=== PATIENT | female | born 1990 | race Caucasian/White ===

== ENCOUNTER 2024-08-07 08:58 | Outpatient (CLI) | payer BC, SELFPAY | END 2024-08-07 08:59 | disposition home or self-care (01) | LOC: NFLDREF 08-18 13:48 | PROVIDERS: Visit Provider Advanced Practice Midwife | DX: Z34.93 Encounter for supervision of normal pregnancy, unspecified, third trimester (principal); Z3A.29 29 weeks gestation of pregnancy | CPT/HCPCS: 86592 ==

== ENCOUNTER 2024-09-11 09:00 | Outpatient (CLI) | payer BC, SELFPAY | END 2024-09-11 09:01 | disposition home or self-care (01) | PROVIDERS: Visit Provider Advanced Practice Midwife | DX: Z34.93 Encounter for supervision of normal pregnancy, unspecified, third trimester (principal); Z3A.34 34 weeks gestation of pregnancy | CPT/HCPCS: 82565; 82570; 84156; 84450; 84460; 87086 ==

== ENCOUNTER 2024-09-16 09:22 | Outpatient (CLI) | payer BC, SELFPAY | END 2024-09-16 09:23 | disposition home or self-care (01) | LOC: NFLDREF 09-20 02:48 | PROVIDERS: Visit Provider Advanced Practice Midwife | DX: R03.0 Elevated blood-pressure reading, without diagnosis of hypertension (principal) | CPT/HCPCS: 82570; 84156 ==

== ENCOUNTER 2024-09-25 09:15 | Outpatient (CLI) | payer BC, SELFPAY | END 2024-09-25 09:16 | disposition home or self-care (01) | LOC: NFLDREF 09-26 14:41 | PROVIDERS: Visit Provider Advanced Practice Midwife | DX: Z34.93 Encounter for supervision of normal pregnancy, unspecified, third trimester (principal); Z3A.36 36 weeks gestation of pregnancy | CPT/HCPCS: 87081; 87653 ==

== ENCOUNTER 2024-10-17 23:03 | Inpatient (IN) | payer BC, SELFPAY ==
[2024-10-17 22:51] VITALS: BP 162/99; PULSE 121; PULSE 30; RESP 22; TEMP 36.4; O2SAT 84
[2024-10-17 22:52] VITALS: PULSE 121; O2SAT 100
[2024-10-17 22:53] VITALS: BP 154/95; PULSE 115
[2024-10-17 23:09] VITALS: BP 140/97; PULSE 136
--- NOTE | 2024-10-17 23:14 | P.LDBA_ITS ---
Subjective History of Present Illness Date Seen: 10/17/24 Narrative: Margaux is being admitted to Labor and Delivery for spontaneous labor which she reports started around 1600 today. She is a 34 year old at 39.1 weeks gestation. Her full history and physical was dictated by Clare Lovell CNM on 09/30/24. Please see this for details. On admission her blood pressure has been elevated with one reading of 162/99, recheck elevated also 140/97. Discussed elevated is concerning for preeclampsia so will plan to watch closely, draw labs and recommended saline lock in the event she needs treatment for her blood pressures. Pt is agreeable to this plan. She has had one elevated blood pres sure in clinic so at this time meets criteria for gestational hypertension. 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 Per her report dx on only one elevated BP in triage. GHTN dx per rec ords. Encouraged her to consider ASA 2/13: Elevated BP in clinic, normal on recheck. Labs collected: WNL except P/c ratio 0.92. Recommend 24 hour urine collection Sent labs from home, WNL Protienuria without diagnosis, 24 hour urine with p/c ratio of 0.52 # Hx anxiety, not on meds. # Hx 3A laceration. OB Labs:??? Blood type: A+, antibody screen negative.??? Hgb: 11.6??? Platelets: 176??? Rubella: Immune??? Varicella: Immune? RPR: non-reactive??? HBsAg: non-reactive??? Hep C: negative? HIV: negative??? UC: [negative]? GC/Chlamydia: negative/negative??? Pap (11/07/21): NIL, HPV-??? Genetic screening: none? IMAGING:??? 1st trimester: 02/29/24- 6w1d by US 8w0d by LMP, FHR 112; 03/22/24-9w 1d by last US, 9w4d?by US today, kept SUSIE of 10/23/24, FHR 167 ?? Anatomy scan: Single IUP, normal anatomic survey, EFW 30%?? COVID: initial series, declined booster Flu: declined TDAP: declined OB - Problem Based A/P Additional Plan (1) 39 weeks gestation of : Status: Acute (2) Pain during labor: Status: Acute (3) Gestational hypertension: Status: Acute Plan Assessment:?? at 39.1 weeks gestation?? GBS negative? Patient is coping well with challenges of labor.?? Labor type: Spontaneous, Active labor? Category 1 FHR pattern.? complicated by: Proteinuria without diagnosis of hypertension Hx 3A laceration Labor complicated by: Gestational hypertension Plan:?? * ?Admit to L & D? * IV access: saline lock * Monitoring per policy: continuous ? * Candidate for analgesia of choice.? Planning unmedicated for pain management * Desires waterbirth.? Consent signed and Hep C negative, discussed she may risk out if blood pressures require treatment * Expectant management at this time * Monitor blood pressures. Preeclampsia labs now. ? * Patient encouraged to reposition and ambulate to promote physiologic labor and . * Anticipate ? Delivery/Labor/Induction Plan Plan: expectant management OB Exam Physical Exam Vital signs: Pulse BP Pulse Ox 136 H 140/97 H 100 10/17/24 23:09 10/17/24 23:09 10/17/24 22:52 Narrative: Vitals Reviewed Constitutional:? Alert and oriented x3 HEENT:? Normocephalic, atraumatic Neck:? Supple Lungs:? Clear to auscultation bilaterally Heart:? Regular rate and rhythm, no murmur, rub or gallop Abdomen:? Soft, nontender, and gravid. Vertex, confirmed with cervical exam per RN Extremities:? No edema or erythema Cervix: 8/90/-1 NST: 150 bpm/moderate variability/+accelerations/-decelerations/ strong contractions Detailed Labor and Delivery Exam Patient Gravid: Yes
[2024-10-17 23:40] VITALS: BP 140/99
[2024-10-17 23:42] VITALS: BP 140/99
[2024-10-17 23:58] LABS: Hematocrit 36.4 % (33.0-51.0); Hemoglobin* 11.9 gm/dL (12.0-16.0); Mean Corpuscular HGB Conc 33 gm/dL (32-36); Mean Corpuscular Hemoglobin 29 pg (26-34); Mean Corpuscular Volume 88 fL (80-100); Platelet Count* 246 K/uL (140-440); Red Blood Count 4.15 m/uL (4.00-5.20); White Blood Count* 15.34 K/uL (4.50-11.00)
[2024-10-18] VITALS (42 sets, daily range): BP systolic 109–137; BP diastolic 70–89; PULSE 68–114; RESP 14–20; TEMP 36.4–36.8; O2SAT 97–100; BMI 32.3
[2024-10-18 00:12] LABS: Slide Review Reflex No
[2024-10-18 00:18] LABS: Alanine Aminotransferase* 20 U/L (4-35); Aspartate Amino Transferase* 26 U/L (12-35); Blood Urea Nitrogen* 6 mg/dL (5-24); Creatinine* 0.5 mg/dL (0.5-1.5); Estimated Glomerular Filt Rate 126 ml/min
[2024-10-18] MEDS: LIDOCAINE 1 % PF 30 ML INJECTION (01:20)
--- NOTE | 2024-10-18 01:50 | W.PM.VAGDE_ITS ---
OB Procedure Vag Delivery Mother Details Mother Details: The patient is a 34 year-old, 2, Para 1, admitted on 10/17/24 at 39.1 Days gestation with spontaneous onset of labor. : 2 Para: 2 Weeks Gestation: 39.2 Admission Date: 10/17/24 Additional Details Amniotic Membrane Status: SROM Amniotic Membrane Rupture Date: 10/18/24 Amniotic Membrane Rupture Time: 00:35 Amniotic Membrane Fluid Description: Clear Analgesia/Anesthesia Type: None Waterbirth: Yes Pitcoin: No Intrapartal Events: None Labor Onset: 20:00 Complete: 00:35 Pushin:35 Heart: heart tones during second stage were continuously monitored, moderate variability throughout Category II. Delivery Details Delivery Date: 10/18/24 Delivery Time: 00:47 Route of delivery: Infant Gender: Female Infant Viability: Alive; Heart Rate Present Position at Delivery: OA Delivery Details: 34?y.o?at 39.2 weeks.? Margaux arrived to the hospital with regular strong contractions which had started at 1600 and became more intense around 1999. On arrival her exam was 8cm/90/-2, intact membranes. She was coping well with contractions. Blood pressures were elevated on admission so preeclampsia labs were drawn and a saline lock placed as a precaution. She then entered the waterbirth tub shortly after and labored in multiple positions. ?BP remain mildly elevated throughout labor but did not require treatment. ? She became complete at 0035, assumed with SROM and spontaneous pushing.??She pushed in right and left lunge positions effectively.? Spontaneous vaginal delivery at 0047 of?a viable? female infant.??Delivered in vertex OA position.??Shoulders delivered easily.? Spontaneous cry noted.?? was lifted out of the water and placed on maternal chest.??Cord?was clamped and cut after a 15 minute delay when cord was limp and white per patient req uest.??Nose and mouth were bulb suctioned.??? Shoulder dystocia: no? Nuchal cord: no? Meconium stained?fluid: no? Water : yes? ? ? 8 at 1 minute and 8 at 5 minutes.? Weight is pending. ? Placenta delivered spontaneously and?complete?at 0112 with a?3 vessel?cord.?? Bleeding controlled with fundal massage.? ? Lacerations:? 2nd degree, repaired with 3-0?vicryl.? ? Bleeding?post delivery?was: minimal. ?The fundus was firm to palpation.? Blood loss: 100?mL.? Blood loss measurement type: QBL? ? ? Sponge,?lap?and needles counts are correct.? Mother and infant were stable after delivery.? 1 Minute Interval Total Score: 8 5 Minute Interval Total Score: 8 Additional Details Shoulder Dystocia: No Placenta Delivery Time: 01:12 Placental Delivery Description: Spontaneous Delivery repair: Vicryl Procedure Done: Global Blood Loss: 100 Laceration: Perineal - 2nd Degree Blood Loss Measurement Type: QBL Bakri Used: No Sponge/Need Count Correct: Yes Cord Vessel Description: 3 Vessels Event Summary Status: Mother and infant were stable after delivery. Disposition: floor
[2024-10-18 02:14] LABS: Total Protein Urine 14 mg/dL
[2024-10-18 02:15] LABS: Creatinine Urine 37.7 mg/dL; Protein Creatinine Ratio Urine 0.37 (0-0.19)
[2024-10-18] MEDS: ACETAMINOPHEN 500 MG TABLET 1000 MG PO ×4 (02:17→21:41)
[2024-10-18] MEDS: IBUPROFEN 600 MG TABLET PO ×3 (04:33→19:24)
[2024-10-19] VITALS (9 sets, daily range): BP systolic 128–146; BP diastolic 82–93; PULSE 80–108; RESP 14–18; TEMP 36.5–37.4; O2SAT 98–99
[2024-10-19] MEDS: IBUPROFEN 600 MG TABLET PO ×3 (01:03→18:42)
[2024-10-19] MEDS: ACETAMINOPHEN 500 MG TABLET 1000 MG PO ×2 (06:08→15:39)
--- NOTE | 2024-10-19 11:43 | PM.OBDSVD1 ---
DS: Providers Provider Date Seen: 10/19/24 Date of admission: 10/17/24 23:03 Primary care physician: Not a Local Provider Admitting Clinician: Luz Maria Gore CNM Attending Physician on discharge: Luz Maria Gore CNM Date of Discharge: 10/19/24 DS: Diagnosis Discharge Diagnosis (1) Gestational hypertension: Status: Acute (2) Lactating mother: Status: Acute (3) care following vaginal delivery: Status: Acute Exam Narrative: Exam Narrative: GENERAL APPEARANCE:? normal affect, alert, no distress? MOOD:? appropriate? CHEST:? clear to auscultation and percussion? HEART:? regular rate and rhythm? ABDOMEN:? soft, non-tender the uterine fundus is U/2 and is appropriate for the stage of recovery.? PERINEUM:? mild edema of the perineum, there is a 2nd degree laceration that is healing well.? EXTREMITIES:? normal and no edema? Const: Vital Signs, click to edit/add: Vital Signs - 24 hr 10/18/24 12:36 10/18/24 17:31 10/18/24 20:10 Temperature 97.7 F 98.2 F 97.6 F Pulse Rate [Left P ulse Oximeter] 98 99 92 Respiratory Rate 16 14 16 Blood Pressure [Ri ght Arm] 137/85 134/88 129/88 Pulse Oximetry 100 99 98 Oxygen Delivery Me thod Room Air Room Air Room Air 10/19/24 00:40 10/19/24 06:05 10/19/24 10:25 Temperature 97.8 F 97.7 F 97.8 F Pulse Rate [Left P ulse Oximeter] 96 80 100 Respiratory Rate 16 16 16 Blood Pressure [Ri ght Arm] 134/90 H 130/89 135/90 H Pulse Oximetry 98 99 98 Oxygen Delivery Me thod Room Air Room Air Room Air 10/19/24 10:40 Temperature Pulse Rate [Left P ulse Oximeter] Respiratory Rate Blood Pressure [Ri ght Arm] 142/93 H Pulse Oximetry Oxygen Delivery Me thod Documenting provider has reviewed patient's vital signs: yes OB - DS: Summary Hospital Course Hospital Course: Margaux is a 34 year old G 2 P 2 at 39.2 weeks gestation that was admitted to the Center on 10/17/24 for spontaneous labor. She had an uncomplicated vaginal delivery. She delivered a viable female infant. She is breast feeding and denies concerns with how it is going at this time. Encouraged as needed. the patient has done well. Her pain is well controlled with current medications.? She has no new complaints.? Urinary output is adequate and she is voiding without difficulty.? Has a good appetite, is tolerating a general diet, is passing flatus, and has not yet had a bowel movement.? Has scant amount of rubra lochia.? She is ambulating well.?She is planning NFP for PP contraception which she has previously used. Discussed changes in this method and encouraged 1 year spacing. We had a very in depth conversation about her blood pressures and medication options. She did agree to take Nifedipine 30 daily but would still like to discharge today. Discussed the risks for readmission with early discharge. 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 Reviewed again in detail with her and her partner symptoms and when to be seen. Peripartum Data Infant delivery method: Vaginal Laceration description: Perineal - 2nd Degree complications: none [place] Gender: Female Discharge Plan: Home Status at Discharge Functional status at discharge: independent ambulation Overall status at discharge: patient is progressing back to baseline Time Spent with Patient Time attestation: Total time spent providing and/or coordinating discharge services: Discharge Plan Discharge Disposition: Home, Self-Care Date of Admission: 10/17/24 23:03 Attending Provider on Discharge: Humaira Bang Primary Care Provider: Provider,Not a Local Condition: Stable Anticipated Discharge Date/Time: 10/19/24 17:00 Discharge Medications: New ibuprofen 600 mg Tablet 600 mg PO Q6H PRNQty: 60 0RF nifedipine 30 mg Tablet Extended Release 24hr 30 mg PO DAILY Qty: 60 0RF Continued One-A-Day -1 27 mg iron- 800 mcg-235 mg capsule 1 cap PO DAILY calcium carbonate [Tums] 200 mg calcium (500 mg) tablet,chewable 200 mg PO BID Discharge Orders: Discharge Order (Routine); Ordered 10/19/24 Ordered By: Humaira Bang Patient Education: OB Vaginal/Breast Feeding Additional Instructions: Discharge instructions were reviewed with the patient including signs and symptoms of infection and home going medications.? Lifting Restrictions: 20 pounds for 6? weeks? ?? Do not drive while taking narcotic pain meds.? Off Work or School for 6 weeks.? ?? Symptoms to report to doctor:? -Bleeding that saturates more than one pad per hour? -Passing clots larger than the size of a golf ball? -Pain not relieved by prescribed medication? -Fever above 100.4 degrees Fahrenheit? -A foul vaginal odor? -Difficulty in emotions, mood and functions? -Thoughts of hurting yourself and/or ? -Painful, reddened area in your breast? -Any drainage, redness or tenderness in your IV/epidural site? -Severe headache that doesn't improve after taking medications? -Changes in vision, including temporary loss of vision, blurred vision, and/or light sensitivity? -Upper abdominal pain (usually under ribs on the right side)? -Decrease in urination or painful, frequent urinating? -Chest pain? -Shortness of breath? -Tenderness or pain with redness and/swelling in the calf(s) of your leg? 1. 2-3 day visit:?blood pressure check.? 2. 2-week visit: discuss feeding/care concerns, review control options and screen for anxiety/depression.? 3. 6-week visit for an annual exam.? consultation services are available to all mothers and babies for the first year after delivery.? To make an appointment, please call [phone].? Activity Level: Activity as Tolerated Discharge Diet: Regular Follow Up Appointments: Provider,Not a Local [Primary Care Provider] - [facility] [Provider Group] Forms: [employer] Info Instructions
[2024-10-19] MEDS: NIFEdipine 30 MG TAB.ER.24 PO (11:59)
[2024-10-20 05:36] VITALS: BP 157/88; PULSE 120; RESP 18; TEMP 36.6; O2SAT 98
[2024-10-20] MEDS: ACETAMINOPHEN 500 MG TABLET 1000 MG PO (05:37)
[2024-10-20 05:51] VITALS: BP 143/93; PULSE 111
[2024-10-20] MEDS: NIFEdipine 30 MG TAB.ER.24 PO ×2 (06:10→07:45)
--- NOTE | 2024-10-20 07:12 | P.DS_ITS ---
DS: Providers Provider Date Seen: 10/20/24 Date of admission: 10/17/24 23:03 Primary care physician: Not a Local Provider Admitting Clinician: Luz Maria Gore CNM Attending Physician on discharge: Presley JOHNSON Date of Discharge: 10/20/24 DS: Diagnosis Discharge Diagnosis (1) care following vaginal delivery: Status: Acute (2) Lactating mother: Status: Acute (3) Gestational hypertension: Status: Acute Exam Narrative: Exam Narrative: GENERAL APPEARANCE:? normal affect, alert, no distress MOOD:? appropriate CHEST:? clear to auscultation HEART:? regular rate and rhythm ABDOMEN:? soft, non-tender the uterine fundus is 2 cm below Umbilicus, Midline and is appropriate for the stage of recovery. PERINEUM:? mild edema of the perineum, there is a Perineal Laceration,? that is well approximated with no erythema. EXTREMITIES:? normal and no edema Const: Vital Signs, click to edit/add: Vital Signs - 24 hr 10/19/24 10:25 10/19/24 10:40 10/19/24 13:02 Temperature 97.8 F 97.9 F Pulse Rate [Left P ulse Oximeter] 100 92 Respiratory Rate 16 14 Blood Pressure [Ri ght Arm] 135/90 H 142/93 H 128/88 Pulse Oximetry 98 99 Oxygen Delivery Me thod Room Air Room Air 10/19/24 14:07 10/19/24 18:42 10/19/24 22:33 Temperature 99.3 F 98.6 F Pulse Rate [Left P ulse Oximeter] 108 H 86 Respiratory Rate 16 18 Blood Pressure [Ri ght Arm] 146/89 H 131/82 145/89 H Pulse Oximetry 98 Oxygen Delivery Me thod Room Air Room Air 10/19/24 22:47 10/20/24 05:36 10/20/24 05:51 Temperature 97.9 F Pulse Rate [Left P ulse Oximeter] 120 H 111 H Respiratory Rate 18 Blood Pressure [Ri ght Arm] 134/83 157/88 H 143/93 H Pulse Oximetry 98 Oxygen Delivery Me thod Room Air OB - DS: Summary Hospital Course Hospital Course: Margaux is a 34 year old G 2 P 2 at 39.2 weeks gestation that was admitted to the Center on 10/17/24 for spontaneous labor. She had an uncomplicated vaginal delivery. She delivered a viable female infant. She is breast feeding and denies concerns with how it is going at this time. Encouraged as needed. the patient has done well. Her pain is well controlled with current medications.? She has no new complaints.? Urinary output is adequate and she is voiding without difficulty.? Has a good appetite, is tolerating a general diet, is passing flatus, and has not yet had a bowel movement.? Has scant amount of rubra lochia.? She is ambulating well.?She is planning NFP for PP contraception which she has previously used. Mild elevations in BP this morning are prompting an increase in the Nifedipine ER dose to 60mg daily. No SEARS, vision changes or RUQ pain. Problems: GHTN? ?? plan:? Discharge home with baby.? Follow up in 2days, 2 weeks and 6 weeks.? , may see if needed? Hgb 11.9. ? GHTN diagnosed by elevated BP greater than 4 hours apart? Labs WNL or stable with trending? Discharge home with BP cuff if does not already have one? Follow up in 2-3 days? Call for signs/symptoms of preeclampsia? Peripartum Data delivery method: Vaginal Laceration description: Perineal - 2nd Degree (repaired) Episiotomy description: None complications: other (GHTN diagnosed ) [place] Infant Gender: Female Infant Discharge Plan: Home Status at Discharge Overall status at discharge: patient is progressing back to baseline Time Spent with Patient Time attestation: Total time spent providing and/or coordinating discharge services: Time spent: Less than 30 minutes Discharge Plan Discharge Disposition: Home, Self-Care Date of Admission: 10/17/24 23:03 Attending Provider on Discharge: Robyn Bradshawphal Primary Care Provider: Provider,Not a Local Condition: Stable Anticipated Discharge Date/Time: 10/19/24 17:00 Discharge Medications: New ibuprofen 600 mg Tablet 600 mg PO Q6H PRNQty: 60 0RF nifedipine 30 mg Tablet Extended Release 24hr 30 mg PO DAILY Qty: 60 0RF Continued One-A-Day -1 27 mg iron- 800 mcg-235 mg capsule 1 cap PO DAILY calcium carbonate [Tums] 200 mg calcium (500 mg) tablet,chewable 200 mg PO BID No Action nifedipine 60 mg tablet extended release 60 mg PO QDAY Qty: 60 1RF Discharge Orders: Discharge Order (Routine); Ordered 10/20/24 Ordered By: Robyn Lovell Consulting provider completed their portion of the discharge: Yes Patient Education: OB Vaginal/Breast Feeding Additional Instructions: Discharge instructions were reviewed with the patient including signs and symptoms of infection and home going medications.? Lifting Restrictions: 20 pounds for 6? weeks? ?? Do not drive while taking narcotic pain meds.? Off Work or School for 6 weeks.? ?? Symptoms to report to doctor:? -Bleeding that saturates more than one pad per hour? -Passing clots larger than the size of a golf ball? -Pain not relieved by prescribed medication? -Fever above 100.4 degrees Fahrenheit? -A foul vaginal odor? -Difficulty in emotions, mood and functions? -Thoughts of hurting yourself and/or ? -Painful, reddened area in your breast? -Any drainage, redness or tenderness in your IV/epidural site? -Severe headache that doesn't improve after taking medications? -Changes in vision, including temporary loss of vision, blurred vision, and/or light sensitivity? -Upper abdominal pain (usually under ribs on the right side)? -Decrease in urination or painful, frequent urinating? -Chest pain? -Shortness of breath? -Tenderness or pain with redness and/swelling in the calf(s) of your leg? 1. 2-3 day visit:?blood pressure check.?Continue Nifedipine ER 60mg daily until otherwise instructed. 2. 2-week visit: discuss feeding/care concerns, review control options and screen for anxiety/depression.? 3. 6-week visit for an annual exam.? consultation services are available to all mothers and babies for the first year after delivery.? To make an appointment, please call [phone].? For pain control of perineum, breast and pelvic pain, take 600 mg Ibuprofen every 6 hours as needed by mouth or 1000 mg acetaminophen (Tylenol) every 6 hours by mouth as needed. You can alternate these so you are taking something every 3 hours as needed. A heating pad can also be used for your abdomen or breasts. You may also take docusate sodium up to twice daily to soften your sto ols and help to prevent constipation. You may wean off of it when your stools return to normal.? Activity Level: Activity as Tolerated Discharge Diet: Regular Follow Up Appointments: [facility] [Provider Group] Forms: [employer] Info Instructions
[2024-10-20 07:15] VITALS: BP 132/88; PULSE 102; RESP 16; O2SAT 100
== END 2024-10-20 10:26 | disposition home or self-care (01) | DRG 560 ==
LOC: OB OUT 23:04 → OB 23:04
PROVIDERS: Admitting Provider Advanced Practice Midwife; Visit Provider Advanced Practice Midwife
DX: O13.4 Gestational [pregnancy-induced] hypertension without significant proteinuria, complicating childbirth (principal); Z3A.39 39 weeks gestation of pregnancy; Z37.0 Single live birth; O99.344 Other mental disorders complicating childbirth; F41.9 Anxiety disorder, unspecified; O76 Abnormality in fetal heart rate and rhythm complicating labor and delivery; Z87.59 Personal history of other complications of pregnancy, childbirth and the puerperium
CPT/HCPCS: 36415; 82565; 82570; 84156; 84450; 84460; 84520; 85027; 86592; A9270; J2003